=== PATIENT | male | born 1970 | race Caucasian/White ===

== ENCOUNTER 2017-11-27 20:52 | Emergency (ER) | payer OTHER ==
[2017-11-27 20:56] VITALS: BP 158/75; TEMP 97.8; BMI 35.2
--- NOTE | 2017-11-27 21:02 | ED.PDOC ---
General ED Provider: Dr. CEDRICK HERNANDEZ-ER Chief Complaint: Cough Stated Complaint: im coughing up some stuff--denies fever or sob--"everyone in my house has had this" Time Seen by Physician: 21:00 Mode of Arrival: Walk-In Information Source: Patient Exam Limitations: No limitations Primary Care Provider: KIARA TEIXEIRA Nursing and Triage Documentation Reviewed and Agree: Yes Reviewed sepsis parameters & appropriate labs ordered?: Yes System Inflammatory Response Syndrome: Not Applicable Sepsis Protocol: For patient's 13 years and over: Temp is 96.8 and below OR 101 and greater Pulse >90 BPM Resp >20/minute Acutely Altered Mental Status Are patient's symptoms suggestive of a new infection, such as: -Pneumonia -Skin, Soft Tissue -Endocarditis -UTI -Bone, Joint Infection -Implantable Device -Acute Abdominal Infection -Wound Infection -Meningitis -Blood Stream Catheter Infection -Unknown Respiratory Complaint Exam - Respiratory Complaint/Exam Onset/Duration: 4 daysa Symptoms Are: Still present Timing: Intermittent Initial Severity: Mild Current Severity: Mild Location: Chest Character: Reports: Productive cough Aggravating: Reports: URI Alleviating: Reports: None Associated Signs and Symptoms: Reports: URI, Nasal congestion. Denies: Rapid breathing, Dyspnea, Fever, Chills, Chest pain, Pleuritic chest pain, Wheezing, Hemoptysis, Dizziness, Calf pain, Calf swelling, Edema, Hoarseness, Sinus discomfort, Vomiting, Sore throat, Weight loss, Decreased oral intake, Increased appetite, Increased urination Related History: Reports: Similar episode History of Healthcare-Acquired Pneumonia: No Related Surgical History: Reports: None Pseudomonas Risk Factors: Reports: None Tuberculosis Risk Factors: Reports: None Status Asthmaticus Risk Factors: Reports: None Home Oxygen Use: No Recent Stress Test: No Recent Echo/LV Function: No Current Antibiotic Use: No Current Asthma Medication Use: No Respiratory Distress: None Inadequate Respiratory Effort: No Dysphagia Present: No Stridor Present: No JVD Present: No Accessory Muscle Use: No Retractions: Not Present Diminished Breath Sounds: No Prolonged Respiration: Expiratory phase Sinus Tenderness: None Grunting Respirations: No Kussmaul Respirations: No Differential Diagnoses: Bronchitis Review of Systems - Review Of Systems Constitutional: Reports: No symptoms Eyes: Reports: No symptoms Ears, Nose, Mouth, Throat: Reports: No symptoms Respiratory: Reports: Cough Cardiac: Reports: No symptoms GI: Reports: No symptoms : Reports: No symptoms Musculoskeletal: Reports: No symptoms Skin: Reports: No symptoms Neurological: Reports: No symptoms Endocrine: Reports: No symptoms Hematologic/Lymphatic: Reports: No symptoms All Other Systems: Reviewed and Negative Past Medical History - Past Medical History Previously Healthy: No Endocrine: Reports: DM 2, Hypothyroid, Dyslipidemia Cardiovascular: Reports: None Respiratory: Reports: None Hematological: Reports: None Gastrointestinal: Reports: None Genitourinary: Reports: None Neuro/Psych: Reports: None Musculoskeletal: Reports: None Cancer: Reports: None - Surgical History General Surgical History: Reports: Unknown - Family History Family History: Reports: Unknown - Social History Smoking Status: Never smoker Hx Substance Use: No Alcohol Screening: None - Immunizations Tetanus Shot up to Date: Yes Physical Exam - Physical Exam Appearance: Well-appearing, No pain distress, Well-nourished Eyes: TESSA, EOMI, Conjunctiva clear ENT: Ears normal, Nose normal, Oropharynx normal Neck: Supple Respiratory: Rhonchi Cardiovascular: RRR, Pulses normal, No rub, No murmur GI/: Soft Musculoskeletal: Normal strength, ROM intact, No edema, No calf tenderness Skin: Warm, Dry, Normal color Neurological: Sensation intact, Motor intact, Reflexes intact, Cranial nerves intact, Alert, Oriented Psychiatric: Affect appropriate, Mood appropriate Critical Care Note - Critical Care Note Total Time (mins): 0 Course - Course Vital Signs: Temp Pulse Resp BP Pulse Ox 11/27/17 20:53 97.8 F 120 H 16 158/75 H 96 Departure - Departure Time of Disposition: 21:02 Disposition: HOME SELF-CARE Discharge Problem: Bronchitis Instructions: Acute Bronchitis (ED) Condition: Good Pt referred to PMD for follow-up: Yes IPMP verified?: No Additional Instructions: augmentin 875mg bid x 7 days--tussionex 1 tsp q 12hrs prn [id number] in 72hrs if not better Allergies/Adverse Reactions: Allergies adhesive Adverse Reaction (Verified 04/24/16 21:52) codeine Adverse Reaction (Verified 04/24/16 21:52) Home Medications: Ambulatory Orders Clonidine HCl [Catapres] 0.1 mg PO BID 07/30/13 Furosemide [Lasix] 40 mg PO BID 07/30/13 Gabapentin [Neurontin] 100 mg PO TID 07/30/13 Prednisone 2.5 mg PO DAILY 07/30/13 Tacrolimus [Prograf] 1 mg PO BID 07/30/13 Aspirin [Aspirin EC] 81 mg PO DAILYWM 11/04/14 Cyclobenzaprine HCl [Flexeril] 10 mg PO TID 11/04/14 Ezetimibe [Zetia] 10 mg PO DAILY 11/04/14 Hydrocodone/Acetaminophen [[place] 7.5-325 Tablet] 10 mg PO Q4HR PRN 11/04/14 Lisinopril 20 mg PO DAILY 11/04/14 Metoprolol Succinate 25 mg PO BID 11/04/14 Pravastatin Sodium [Pravachol] 40 mg PO DAILY 11/04/14 Fluconazole 200 mg PO DAILY 01/20/15 Disposition Discussed With: Patient
== END 2017-11-27 21:09 | disposition home or self-care (01) ==
LOC: ED 20:52
DX: J40 Bronchitis, not specified as acute or chronic (principal)
CPT/HCPCS: 99282

== ENCOUNTER 2018-06-03 19:08 | Emergency (ER) ==
[2018-06-03 19:21] VITALS: BP 132/71; TEMP 98; BMI 35.6
--- NOTE | 2018-06-03 19:30 | ED.PDOC ---
General ED Provider: Dr. ALE WU Chief Complaint: Hand Pain/Injury Stated Complaint: Patient had wound on the left middle finger, it was healing well, but he started peeling it yesterday as it had callus, today the finger is red swollen tender. Time Seen by Physician: 19:30 Mode of Arrival: Walk-In Information Source: Patient Primary Care Provider: KIARA TEIXEIRA Nursing and Triage Documentation Reviewed and Agree: Yes Does patient meet sepsis criteria?: No If yes, has appropriate treatment been initiated?: No System Inflammatory Response Syndrome: Not Applicable Sepsis Protocol: For patient's 13 years and over: Temp is 96.8 and below OR 101 and greater Pulse >90 BPM Resp >20/minute Acutely Altered Mental Status Are patient's symptoms suggestive of a new infection, such as: -Pneumonia -Skin, Soft Tissue -Endocarditis -UTI -Bone, Joint Infection -Implantable Device -Acute Abdominal Infection -Wound Infection -Meningitis -Blood Stream Catheter Infection -Unknown Skin Complaint Exam - Skin/Soft Tissue Complaint/Exam Symptoms Are: Still present Timing: Constant Initial Severity: Mild Current Severity: None Character: Reports: Redness, Swelling, Raised, Painful Aggravating: Reports: Touch Alleviating: Reports: None Associated Signs and Symptoms: Reports: Tenderness, Red streaks. Denies: Fever , Chills, Itching, Drainage, Bruising, Joint swelling Related History: Reports: Similar episode Related Surgical History: Reports: None Recent Exposure to Others w/Similar Symptoms: No Skin Findings: Present: Erythema. Absent: Induration, Fluctuant mass Differential Diagnoses: Cellulitis Review of Systems - Review Of Systems Constitutional: Reports: No symptoms Eyes: Reports: No symptoms Ears, Nose, Mouth, Throat: Reports: No symptoms Respiratory: Reports: No symptoms Cardiac: Reports: No symptoms GI: Reports: No symptoms : Reports: No symptoms Musculoskeletal: Reports: No symptoms Skin: Reports: No symptoms Neurological: Reports: No symptoms Endocrine: Reports: No symptoms Hematologic/Lymphatic: Reports: No symptoms All Other Systems: Reviewed and Negative Past Medical History - Past Medical History Previously Healthy: No Endocrine: Reports: DM 2, Hypothyroid, Dyslipidemia Cardiovascular: Reports: None Respiratory: Reports: None Hematological: Reports: None Gastrointestinal: Reports: None Genitourinary: Reports: CKD Neuro/Psych: Reports: None Musculoskeletal: Reports: None Cancer: Reports: None - Surgical History General Surgical History: Reports: Unknown - Family History Family History: Reports: Unknown - Social History Smoking Status: Never smoker Hx Substance Use: No Alcohol Screening: None - Immunizations Tetanus Shot up to Date: Yes Physical Exam - Physical Exam Appearance: Well-appearing, No pain distress, Well-nourished Eyes: TESSA, EOMI, Conjunctiva clear ENT: Ears normal, Nose normal, Oropharynx normal Respiratory: Airway patent, Breath sounds clear, Breath sounds equal, Respirations nonlabored Cardiovascular: RRR, Pulses normal, No rub, No murmur GI/: Soft, Nontender, No masses, Bowel sounds normal, No Organomegaly Musculoskeletal: Normal strength, ROM intact, No edema, No calf tenderness Skin: Warm, Dry, Normal color Neurological: Sensation intact, Motor intact, Reflexes intact, Cranial nerves intact, Alert, Oriented Psychiatric: Affect appropriate, Mood appropriate Critical Care Note - Critical Care Note Total Time (mins): 30 Course - Course Vital Signs: Temp Pulse Resp BP Pulse Ox 06/03/18 19:09 98.0 F 105 H 20 132/71 98 Departure - Departure Time of Disposition: 19:38 Disposition: HOME SELF-CARE Discharge Problem: Cellulitis of finger of left hand Instructions: Cellulitis (ED) Condition: Stable Pt referred to PMD for follow-up: Yes IPMP verified?: No Additional Instructions: keep hand elevated, take medication with food f/u with PMD in 2 days Take Probiotics Prescriptions: Cephalexin [Keflex] 500 mg PO Q12HR #14 capsule Clindamycin HCl 300 mg PO TID #15 capsule Allergies/Adverse Reactions: Allergies adhesive Adverse Reaction (Verified 06/03/18 19:17) codeine Adverse Reaction (Verified 06/03/18 19:17) Home Medications: Ambulatory Orders Clonidine HCl [Catapres] 0.1 mg PO BID 07/30/13 Furosemide [Lasix] 40 mg PO BID 07/30/13 Gabapentin [Neurontin] 100 mg PO TID 07/30/13 Prednisone 2.5 mg PO DAILY 07/30/13 Tacrolimus [Prograf] 1 mg PO BID 07/30/13 Aspirin [Aspirin EC] 81 mg PO DAILYWM 11/04/14 Cyclobenzaprine HCl [Flexeril] 10 mg PO TID 11/04/14 Ezetimibe [Zetia] 10 mg PO DAILY 11/04/14 Hydrocodone/Acetaminophen [[place] 7.5-325 Tablet] 10 mg PO Q4HR PRN 11/04/14 Lisinopril 20 mg PO DAILY 11/04/14 Metoprolol Succinate 25 mg PO BID 11/04/14 Pravastatin Sodium [Pravachol] 40 mg PO DAILY 11/04/14 Fluconazole 200 mg PO DAILY 01/20/15 Cephalexin [Keflex] 500 mg PO Q12HR #14 capsule 06/03/18 Clindamycin HCl 300 mg PO TID #15 capsule 06/03/18 Disposition Discussed With: Patient, Family
[2018-06-03] MEDS ORDERED: KEFLEX PO STA (19:32)
[2018-06-03] MEDS ORDERED: CLEOCIN PO STA (19:32)
== END 2018-06-03 19:52 | disposition home or self-care (01) ==
LOC: ED 19:08
DX: L03.012 Cellulitis of left finger (principal)
CPT/HCPCS: 99282

== ENCOUNTER 2018-09-09 19:26 | Emergency (ER) ==
[2018-09-09 19:28] VITALS: TEMP 98.3; BMI 35.9
[2018-09-09] MEDS ORDERED: TYLENOL PO STA (20:18)
--- NOTE | 2018-09-09 20:43 | ED.PDOC ---
General ED Provider: Dr. JASON ZUNIGA Chief Complaint: Earache Stated Complaint: Right ear pain especially on the back of the ear for two days. Has occasional Drainage. Time Seen by Physician: 20:00 Mode of Arrival: Walk-In Information Source: Patient Primary Care Provider: KIARA TEIXEIRA Nursing and Triage Documentation Reviewed and Agree: Yes Does patient meet sepsis criteria?: No System Inflammatory Response Syndrome: Not Applicable Sepsis Protocol: For patient's 13 years and over: Temp is 96.8 and below OR 101 and greater Pulse >90 BPM Resp >20/minute Acutely Altered Mental Status Are patient's symptoms suggestive of a new infection, such as: -Pneumonia -Skin, Soft Tissue -Endocarditis -UTI -Bone, Joint Infection -Implantable Device -Acute Abdominal Infection -Wound Infection -Meningitis -Blood Stream Catheter Infection -Unknown EENT Complaint Exam - Ear Complaint/Exam Onset/Duration: 1-2 days Symptoms Are: Still present Timing: Constant Initial Severity: Moderate Current Severity: Severe Character: Reports: Dull pain Aggravating: Reports: Tugging on ear Alleviating: Reports: Antipyretics Associated Signs and Symptoms: Reports: Ear swelling, Discharge (mild ), Pain to external ear. Denies: Ear trauma, Fever, Hearing loss, Bleeding, Sore throat , Headache, URI symptoms, Foreign body sensation, Rash Ear Surgical History: None Vesicles to External Pinna: No Vesicles to Tragus: No TMJ Tenderness: None Mastoid Tenderness: Right Tragal Tenderness: None External Canal: Normal Material in Canal: Present: Cerumen (mld ) Differential Diagnoses: Mastoiditis, Otitis Externa, Otitis Media Review of Systems - Review Of Systems Constitutional: Reports: No symptoms Eyes: Reports: No symptoms Ears, Nose, Mouth, Throat: Reports: Ear pain Respiratory: Reports: No symptoms Cardiac: Reports: No symptoms GI: Reports: No symptoms : Reports: No symptoms Musculoskeletal: Reports: No symptoms Skin: Reports: No symptoms Neurological: Reports: Anxiety Endocrine: Reports: No symptoms Hematologic/Lymphatic: Reports: No symptoms All Other Systems: Reviewed and Negative Past Medical History - Past Medical History Previously Healthy: No Endocrine: Reports: DM 2, Hypothyroid, Dyslipidemia Cardiovascular: Reports: None Respiratory: Reports: None Hematological: Reports: None Gastrointestinal: Reports: None Genitourinary: Reports: CKD Neuro/Psych: Reports: None Musculoskeletal: Reports: None Cancer: Reports: None - Surgical History General Surgical History: Reports: Unknown - Family History Family History: Reports: Unknown - Social History Smoking Status: Never smoker Hx Substance Use: No Alcohol Screening: None Physical Exam - Physical Exam Appearance: Ill-appearing, Obese Ill-appearing: Mild Pain Distress: Severe Eyes: TESSA ENT: Nose normal, Oropharynx normal Neck: Supple (except to the right ear with tenderness to palpation) Respiratory: Airway patent, Breath sounds clear, Breath sounds equal, Respirations nonlabored Cardiovascular: Pulses normal, No rub, No murmur, Tachycardia Musculoskeletal: Normal strength Neurological: Sensation intact, Motor intact, Reflexes intact, Cranial nerves intact, Alert, Oriented Psychiatric: Anxious Interpretation - Radiology Interpretation Radiology Interpretation By: Radiologist Radiology Results: Positive (Mastoiditis worse on the right) Exam Interpreted: CT Scan Critical Care Note - Critical Care Note Total Time (mins): 0 Course - Course Orders, Labs, Meds: Orders Category Date Time Status Acetaminophen [Tylenol] MEDS 09/09/18 20:18 Discontinued 1,000 mg PO ONCE STA CT MAXILLOFACIAL W/O CONTRAST Stat RADS 09/09/18 20:17 Ordered Medications Discontinued Medications Generic Name Dose Route Start Last Admin Trade Name Freq PRN Reason Stop Dose Admin Acetaminophen 1,000 mg 09/09/18 20:18 Tylenol PO 09/09/18 20:19 ONCE STA Vital Signs: Temp Pulse Resp BP Pulse Ox 09/09/18 19:27 98.3 F 119 H 20 178/84 H 97 Departure - Departure Time of Disposition: 20:51 Disposition: HOME SELF-CARE Discharge Problem: Mastoiditis of right side Hypertension Qualifiers: Hypertension type: essential hypertension Qualified Code(s): I10 - Essential ( primary) hypertension Instructions: Mastoiditis (ED), Chronic Hypertension (ED) Condition: Stable Pt referred to PMD for follow-up: Yes IPMP verified?: No Additional Instructions: take medications as prescribed. Follow up with PCP in 3 days for blood pressure check and to recheck you symptoms return if worse Prescriptions: Amoxicillin/Potassium Clav [Augmentin 875-125 mg Tab] 1 tab PO Q12HR #20 tablet Allergies/Adverse Reactions: Allergies adhesive Adverse Reaction (Verified 09/09/18 19:29) codeine Adverse Reaction (Verified 09/09/18 19:29) Home Medications: Ambulatory Orders Clonidine HCl [Catapres] 0.1 mg PO BID 07/30/13 Furosemide [Lasix] 40 mg PO BID 07/30/13 Gabapentin [Neurontin] 100 mg PO TID 07/30/13 Prednisone 2.5 mg PO DAILY 07/30/13 Tacrolimus [Prograf] 1 mg PO BID 07/30/13 Aspirin [Aspirin EC] 81 mg PO DAILYWM 11/04/14 Cyclobenzaprine HCl [Flexeril] 10 mg PO TID 11/04/14 Ezetimibe [Zetia] 10 mg PO DAILY 11/04/14 Hydrocodone/Acetaminophen [[place] 7.5-325 Tablet] 10 mg PO Q4HR PRN 11/04/14 Lisinopril 20 mg PO DAILY 11/04/14 Metoprolol Succinate 25 mg PO BID 11/04/14 Pravastatin Sodium [Pravachol] 40 mg PO DAILY 11/04/14 Fluconazole 200 mg PO DAILY 01/20/15 Amoxicillin/Potassium Clav [Augmentin 875-125 mg Tab] 1 tab PO Q12HR #20 tablet 09/09/18 Disposition Discussed With: Patient, Family
--- NOTE | 2018-09-09 20:45 | CT ---
CT facial bones without contrast History:Right mastoid tenderness, history of diabetes TECHNIQUE: Multi-slice sequential. Coronal and sagittal reformats were obtained. Comparison: None. FINDINGS: No evidence of displaced facial bone fracture is seen. Fluid is seen within the right mastoid air ce lls. A minimal amount of fluid is seen within the left mastoid air cells. The visualized paranasal s inuses appear clear. The nasal septum is midline. The bilateral middle ears appear grossly clear. No evidence of osseous erosions are seen within the mastoid air cells. Bilateral temporal mandibular joints appear preserved. The bilateral globes appear unremarkable. Visualized intracranial structures appear grossly unremark able. Atherosclerosis is present. Scattered bilateral cervical lymph nodes measure less than 10 mm in short axis. Soft tissue thickening of the bilateral external auditory canals are suggested. Impression: 1. Right mastoid fluid combined with right mastoid pain is compatible with mastoiditis. 2. Minimal left mastoiditis versus mastoid effusion. 3. Soft tissue thickening of the bilateral external auditory canals. Recommend physical exam to yesenia lauriate for otitis externa. 4. Grossly clear middle ears. 5. Atherosclerosis.
[2018-09-09 21:04] VITALS: BP 175/101
== END 2018-09-09 21:07 | disposition home or self-care (01) ==
LOC: ED 19:26
DX: H70.91 Unspecified mastoiditis, right ear (principal); I10 Essential (primary) hypertension
CPT/HCPCS: 99283

== ENCOUNTER 2019-01-14 17:44 | Emergency (ER) ==
[2019-01-14 17:52] VITALS: BP 170/79; TEMP 99.4; BMI 34.9
--- NOTE | 2019-01-14 18:25 | DI ---
EXAM: Right finger, second digit three-view HISTORY: Second digit, distal pain and redness COMPARISON: Right hand 11/06/2010 FINDINGS: Soft tissue irregularity about the distal aspect second digit, likely a wound. Cortical i rregularity and lucency distal tuft 2nd digit is suspicious for osteomyelitis. A few punctate densit ies seen in the distal soft tissues, second digit may represent tiny debris or calcification. No fr acture or dislocation. IMPERSSION: 1. Cortical irregularity and lucency distal tuft 2nd digit, suspicious for osteomyelitis. 2. Suggestion of an adjacent wound distal aspect second digit. A few punctate densities seen in the distal soft tissues, second digit may represent tiny debris or calcification. Report faxed
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
== END 2019-01-14 18:46 | disposition left against medical advice (07) ==
LOC: ED 17:44
DX: M86.9 Osteomyelitis, unspecified (principal); T23.021D Burn of unspecified degree of single right finger (nail) except thumb, subsequent encounter; T79.8XXD Other early complications of trauma, subsequent encounter; X08.8XXD Exposure to other specified smoke, fire and flames, subsequent encounter
CPT/HCPCS: 99284